=== PATIENT | male | born 1990 | race Caucasian/White ===

== ENCOUNTER 2017-04-22 19:34 | Emergency (ER) | payer SELFPAY ==
[~2017-04-22 19:34] MED LIST: HYDRO2.5%T TOP; PRED20 PO; Z.0.NO CURRENT MEDS
[2017-04-22 19:37] VITALS: BP 134/88; PULSE 69; RESP 16; TEMP 99.3; O2SAT 97
--- NOTE | 2017-04-22 20:07 | PD ---
HPI Chief Complaint: Laceration/Skin Injury Time Seen by Provider: 20:05 Travel History International Travel<30 days: No Contact w/Intl Traveler<30days: No Traveled to known affect area: No History of Present Illness HPI 26-year-old [id number] white male presents to emergency Department with complaints of a laceration to the dorsal surface of his left wrist from a piece of metal from his aches. He states that he was cutting a tree down with an ax when the ax exploded. He states that a shard of metal struck his wrist. The patient had immediate pain followed by bleeding. He presents for evaluation. He has not had a tetanus shot over 5 years. Pain is minimal. He denies any numbness or tingling. No other injury. PFSH Past Medical History Medical History: Denies Significant Hx Diminished Hearing: No Immunizations Current: No Tetanus Vaccination: > 5 Years Past Surgical History Surgical History: No Previous Surgery Social History Alcohol Use: Yes (OCC) Tobacco Use: Yes (2 CIGARETTES A DAY) Substance Use: No Allergies-Medications (Allergen,Severity, Reaction): Coded Allergies: Codeine (Verified Allergy, Mild, 04/22/17) Reported Meds & Prescriptions Reported Meds & Active Scripts Active Cephalexin 500 Mg Cap 500 Mg PO Q6H Review of Systems Except as stated in HPI: all other systems reviewed are Neg Physical Exam Narrative GENERAL: This is a well-nourished, well-developed patient, in no apparent distress. SKIN: No rashes, ecchymoses or lesions. Warm and dry. HEAD: Atraumatic. Normocephalic. EYES: PERRL, EOMI, no discharge or injection. No scleral icterus. EARS: Clear NOSE: Nasal turbinates appear normal. THROAT: Mucosa pink and moist. Airway patent. NECK: Trachea midline. supple, moves head freely. LUNGS: Clear to auscultation. CV: Regular in rhythm. ABDOMEN: Soft nontender. EXT: No clubbing cyanosis or edema. Patient has a 5 mm laceration to the mid dorsal left wrist. No active bleeding. Patient's neurovascular intact distally. He moves his fingers freely. Data Data Last Documented VS Vital Signs Date Time Temp Pulse Resp B/P Pulse Ox O2 Delivery O2 Flow Rate FiO2 04/22/17 20:07 20 04/22/17 19:37 99.3 69 134/88 97 Room Air Orders Wrist, Limited (Ap&Lat) (04/22/17 20:04) Cephalexin (Keflex) (04/22/17 20:45) Tetanus/Diphtheria Tox Adult (Tetanus/Di (04/22/17 20:45) MDM Medical Decision Making Medical Screen Exam Complete: Yes Emergency Medical Condition: Yes Medical Record Reviewed: Yes Interpretation(s) Last 24 hours Impressions Wrist X-Ray 04/22/172003 Signed Impressions: Service Date/Time: Saturday, April 22, 2017 20:15 - CONCLUSION: Metallic foreign body in the subcutaneous soft tissues dorsally Robel Kincaid MD Differential Diagnosis MDM: High Differential diagnoses: Fracture, sprain, strain, dislocation, contusion, neurovascular injury Narrative Course Patient is a status updated. Given Keflex 500 mg by mouth. X-ray of the left wrist reveals a metallic foreign body in the skin. Multiple attempts at foreign body removal have been unsuccessful. The wound has been irrigated and the skin has been closed. This is left wrist laceration, foreign body Procedures Procedure Narrative LACERATION LOCATION: Left dorsal wrist LENGTH: 0.5 mm NUMBER OF STITCHES/LOU: 3 REPAIR: The area of the laceration was prepped with Betadine and sterilely draped. The laceration was infiltrated with 1% lidocaine with epinephrine. The laceration is elongated using an 11 blade scalpel to a total of 1 cm. The wound was copiously irrigated and explored without evidence of tendon injury or neurovascular injury. The foreign body has not been able to be localized. I find that further exploration would be more detrimental and that the wound can be closed. The wound is cleansed deeply using dilute Betadine and saline on Q- tips and copiously irrigated a second time. The wound was closed using 4-0 proline. This was a simple single layer repair. A sterile dressing was applied. The patient was advised to keep the dressing clean and dry. Patient tolerated the procedure well. Diagnosis Primary Impression: Laceration of left wrist with foreign body Qualified Code: S61.522A - Laceration of left wrist with foreign body, initial encounter Patient Instructions: General Instructions Additional Instructions: Rest. Elevation. Tylenol and Advil for pain. Cephalexin. Daily wound care with soap, water, Neosporin. Sutures out in 10-12 days. Return to the ER if any problems. Med/Other Pt SpecificInfo: Prescription(s) given, Wound Care Scripts Cephalexin 500 Mg Ksp170 Mg PO Q6H #28 CAP Prov:Deshawn Beatty MD 04/22/17 Disposition: 01 DISCHARGE HOME Condition: Vasile Roche Apr 22, 2017 20:06
--- NOTE | 2017-04-22 20:36 | RADRPT ---
EXAM DATE/TIME: 04/22/2017 20:15 [facility] COMPARISON: No previous studies available for comparison. INDICATIONS : Cutting down tree and axe broke, laceration to posterior proximal wrist. MEDICAL HISTORY : None. SURGICAL HISTORY : None. ENCOUNTER: Initial ACUITY: 1 day PAIN SCORE: 0/10 LOCATION: Left wrist FINDINGS: 2 views of the left wrist. 5 x 1 mm metallic density is identified in the posterior soft tissues just dorsal to the distal radius and 6 mm proximal to the radiocarpal joint. Bone alignment within normal limits. No evidence of fracture. CONCLUSION: Metallic foreign body in the subcutaneous soft tissues dorsally Robel Kincaid MD on April 22, 2017 at 20:33 Board Certified Radiologist. This report was verified electronically.
[2017-04-22] MEDS ORDERED: CEPH500C PO (20:42)
[2017-04-22] MEDS ORDERED: TETANUS/DIPHTHERIA TOXOID ADULT 0.5 ML VIAL IM ONE (20:45)
[2017-04-22] MEDS ORDERED: CEPHALEXIN MONOHYDRATE 500 MG CAP PO ONE (20:45)
== END 2017-04-22 20:59 | disposition home or self-care (01) ==
LOC: NEPD 19:34
DX: S61.512A Laceration without foreign body of left wrist, initial encounter (principal); F17.210 Nicotine dependence, cigarettes, uncomplicated; W27.0XXA Contact with workbench tool, initial encounter; Y93.H2 Activity, gardening and landscaping; Z23 Encounter for immunization
CPT/HCPCS: 12001; 73100; 90471; 90714